=== PATIENT | female | born 1965 | race Caucasian/White ===

== ENCOUNTER 2016-11-19 17:48 | Emergency (ER) | payer OTHER ==
[~2016-11-19] VITALS: Ht 167.6 cm; Wt 81.8 kg
[~2016-11-19 17:48] MED LIST: CIPR-231 PO; NPR500T PO; PRO20 PO; TRAM50TA2 PO
[2016-11-19 17:50] VITALS: PULSE 72; RESP 24; O2SAT 98
[2016-11-19 18:10] VITALS: BP 131/78
--- NOTE | 2016-11-19 18:40 | ED.REPORT ---
HPI-Extremity Problem Upper Date of Service Nov 19, 2016 ED Provider: Ru Glze DO Patient is a 51 year old female with a history of right shoulder injury in 2014 s/p rotator cuff repair who presents to the ED complaining of severe right shoulder pain after completing new exercises with her shoulder today. The patient was being evaluated for range of motion as part of her L&I claim, which caused her to experience severe pain. Patient denies sustaining any trauma or new injury to her arm. She denies experiencing any other new pain. She smokes marijuana for her chronic pain and is able to provide minimal history on initial evaluation due to her severe pain. Nursing Notes Stated Complaint: RIGHT SHOULDER PAIN Chief Complaint: Extremity Trauma Nursing Notes Reviewed: Yes Allergies: Coded Allergies: gabapentin (Verified Allergy, Severe, 04/03/16) oxycodone (Verified Allergy, Severe, 04/03/16) Scheduled Ciprofloxacin (Cipro) 500 Mg Tablet 500 MG PO BID FLUoxetine-Expunged Drug, Do Not Renew! (FLUoxetine-Expunged Drug, Do Not Renew! ) 20 Mg Capsule 40 MG PO DAILY Scheduled PRN Naproxen (Naproxen) 500 Mg Tab 500 MG PO BID PRN PRN For Pain Tramadol (Tramadol) 50 Mg Tablet 100 MG PO Q6H PRN PRN For Pain General Time Seen by MD: 18:39 Chief Complaint Shoulder injury right Hx Obtained From: Patient Arrived By: Walk-in Onset Occurred: 1 - 4 hours ago Symptom Duration: Since onset Location: : Shoulder right Quality: Painful Severity: Current: Severe Severity: Maximum: Severe Recent Healthcare: Recent doctor visit, Previous surgery Similar Sx Previous: Yes Past Medical History Past Medical History Carpal tunnel R wrist chronic right shoulder pain following injury in 2013 (L&I) Past Surgical History R knee surgery 1984 R shoulder surgery Reports: Hysterectomy Smoking History Current Every Day Smoker Social History Alcohol Use: 1-3 per day Drug Use: Denies drug use Other Social History: Good social support, Local resident Ambulatory Status Independent Review of Systems Unable to Obtain ROS Patient condition (limited by the patient's severe pain) Musculoskeletal: Reports: Extremity pain, Joint pain Complete sys rev & neg: except as marked. Cardiovascular: Denies: Chest pain GI: Denies: Abdominal pain Physical Exam Initial Vital Signs Vital Signs (First) Date Time Temp Pulse Resp B/P Pulse Ox O2 Delivery O2 Flow Rate FiO2 11/19/16 17:50 36.8 72 24 98 Room Air 11/19/16 18:10 131/78 Initial VS: Reviewed Head / Eyes: Atraumatic, Normocephalic, PERRL ENT: Conjunctiva normal, No scleral icterus Neck: Supple, Full range of motion Skin: Warm, Dry, No cyanosis Neurologic: Alert, Oriented, Nonfocal Psychiatric: Mood/affect normal, Behavior normal, Normal thought content General/Constitutional: Awake, Alert Appearance / Presentation: Positive: Uncomfortable Respiratory / Chest: Breath sounds NL, Breath sounds = bilat, No respiratory distress, No rales, No rhonchi, No wheezing Cardiovascular: Heart rate NL, Regular rhythm, Heart sounds NL Upper Extremity / MS: Neurologic intact, Vascular intact Right Shoulder: Positive: ROM reduced (ROM causes severe pain) Interpretation & Diagnostics X-Ray Interpretation Xray Interpretation: Impression: Post-operative changes, no acute fracture. X-Ray Ordered: Shoulder right Interpretation / Wet Read by: Wet read ED physician Re-Eval/Medical Decision Source of Hx: Old records Re-Evaluation/Progress : Time of Eval: 19:33 Patient Status: Condition improved Re-Evaluation/Progress Note: X-ray was negative, no fracture. Patient understands and agrees with the plan to be discharged home. She will be given a limited supply of pain medication but will need to be seen by her regular provider in the future. Discharge instructions and follow-up discussed. All questions were addressed. Return to the ED warnings given. Counseled Regarding: Diagnosis, Need for follow-up, When/why to return to ED Discharge & Departure Impression: Primary Impression: Shoulder pain, right Chronicity: acute Qualified Code: M25.511 - Pain in right shoulder Disposition: Home Discharge Condition All VS Reviewed: Yes Condition: Stable Patient Instructions: Shoulder Sprain (ED) Additional Instructions: X-ray did not show an acute fracture. Call your doctor tomorrow to schedule a follow-up appointment. Keep your other scheduled appointments. Keep your shoulder immobilized. Take 1-2 [place] every 6 hours as needed for severe pain. Do not drink alcohol, take acetaminophen, or drive heavy machinery after taking this medication. In the future will need a provider other than the emergency department to control your pain. Return to the Emergency Department if you develop any new or worsening symptoms. Referrals: Luis Antonio Caldera MD (PCP) Scribe Attestation Portions of this note were transcribed by Miroslava Durbin. I, Dr. Glez personally performed the history, physical exam and medical decision-making; I reviewed and confirmed the accuracy of the information in the transcribed note. Signed by: Mary Neri, 11/19/2016 1927 copies to: Luis Antonio Caldera MD, Todd P DO Nov 19, 2016 18:40 Miroslava Durbin Nov 19, 2016 18:49
[2016-11-19] MEDS ORDERED: HYDROmorphone 1 mg/mL Inj IM ONE (18:45)
[2016-11-19 20:22] VITALS: BP 128/77; PULSE 72; RESP 18; O2SAT 99
--- NOTE | 2016-11-19 20:28 | DRSVH ---
PROCEDURE: X-RAY RIGHT SHOULDER, MINIMUM TWO VIEWS ([id number]) INDICATIONS: pain TECHNIQUE: 3 views of the shoulder were acquired. COMPARISON: [facility], CR, XR RAD SHOULDER INJ MRI/CT [facility], 08/15/2016, 15:33. FINDINGS: Bones: No fractures or dislocations. Prior acromioplasty. No suspicious bony lesions. Visualized ribs appear intact. Soft tissues: No suspicious soft tissue calcifications. IMPRESSION: Prior acromioplasty, no trauma found. Dictated by: Gui Wild M.D. on 11/19/2016 at 20:26 Approved by: Gui Wild M.D. on 11/19/2016 at 20:26
== END 2016-11-19 20:13 | disposition home or self-care (01) ==
LOC: SED 17:48
DX: M25.511 Pain in right shoulder (principal); F17.200 Nicotine dependence, unspecified, uncomplicated; Z88.5 Allergy status to narcotic agent; Z88.8 Allergy status to other drugs, medicaments and biological substances; Z87.828 Personal history of other (healed) physical injury and trauma
CPT/HCPCS: 73030; 96372; 99284; J1170; J1885